=== PATIENT | female | born 1980 | race Caucasian/White ===

== ENCOUNTER 2019-05-19 08:23 | Outpatient (CLI) | payer BC, SELFPAY ==
--- NOTE | ~2019-05-19 | MM_ITS ---
EXAMINATION: MM screening kelsea BI w peter HISTORY: Screening mammogram, family history of breast cancer in her mother. TECHNIQUE: Craniocaudal and mediolateral oblique 3-D tomosynthesis images were obtained and synthetic 2-D images were generated. CAD analysis was submitted and interpreted. COMPARISON: 05/04/2018, 03/16/2017 BREAST PARENCHYMAL COMPOSITION: There are scattered areas of fibroglandular density. FINDINGS: RIGHT BREAST: There is a possible mass in the middle third of the outer breast best appreciated 9 cm from the nipple on craniocaudal tomosynthesis image 30/63. LEFT BREAST: There is no evidence of suspicious mass, calcification, or architectural distortion to s uggest malignancy. There has been no significant interval change. IMPRESSION: 1. Possible right breast mass. 2. Additional mammographic views and possible breast ultrasound are recommended. BI-RADS Category 0: Incomplete: Needs additional imaging evaluation. Reviewed, dictated and finalized at location A. WORK FEEDER IMPRESSION: 1. Possible right breast mass. 2. Additional mammographic views and possible breast ultrasound are recommended . BI-RADS Category 0: Incomplete: Needs additional imaging evaluation.
[2019-05-19 08:40] LABS: Basophils Absolute Auto 0.08 K/mm3 (0.00-0.10); Basophils Percent Auto 0.8 % (0.0-1.0); Eosinophils Absolute Auto 0.23 K/mm3 (0.02-0.50); Eosinophils Percent Auto 2.2 % (1.0-6.0); Hematocrit 39.2 % (35.0-49.0); Hemoglobin 12.7 g/dL (12.0-15.0); Immature Granulocyte Absolute 0.04 K/mm3 (0.00-0.00); Immature Granulocyte Percent A 0.4 % (0.0-0.0); Lymphocytes Absolute Auto 2.61 K/mm3 (1.10-4.50); Lymphocytes Percent Auto 24.9 % (18.0-42.0); Mean Corpuscular HGB Conc 32.4 g/dL (32.0-36.0); Mean Corpuscular Hemoglobin 27.3 pg (27.0-31.0); Mean Corpuscular Volume 84.1 fL (78.0-102.0); Mean Platelet Volume 11.3 fl (9.2-11.8); Monocytes Absolute Auto 0.62 K/mm3 (0.10-0.90); Monocytes Percent Auto 5.9 % (2.0-11.0); Neutrophils Absolute Auto 6.9 K/mm3 (1.7-7.2); Neutrophils Percent Auto 65.8 % (50.0-70.0); Platelet Count Result 280 K/mm3 (150-420); Red Blood Count 4.66 M/mm3 (4.20-5.40); Red Cell Distribution Width 13.2 % (11.6-14.4); White Blood Count 10.5 K/mm3 (4.8-10.8)
[2019-05-19 09:30] LABS: Hemoglobin A1C 5.3 % (<5.7)
[2019-05-19 10:04] LABS: Alanine Aminotransferase 21 U/L (14-59); Albumin Level 3.9 g/dL (3.4-5.0); Alkaline Phosphatase 52 U/L (46-116); Anion Gap 17.2 mmol/L (7-16); Aspartate Amino Transferase 13 U/L (15-37); Bilirubin,Total 0.5 mg/dL (0.00-1.00); Blood Urea Nitrogen 15 mg/dL (7-18); Calcium 8.8 mg/dL (8.5-10.1); Carbon Dioxide 26 mmol/L (21-32); Chloride 104 mmol/L (98-108); Cholesterol 182 mg/dL (0-200); Estimated Glomerular Filt Rate > 60; Glucose 87 mg/dL (70-99); HDL Direct 68 mg/dL (40-60); LDL Cholesterol Calculated 79 mg/dL (<130); Osmolality Calculated 295 mOsm/kg (285-295); Potassium 4.2 mmol/L (3.5-5.1); Sodium 143 mmol/L (136-145); Total Protein 7.5 g/dL (6.4-8.2); Triglycerides 173 mg/dL (0-150); Vitamin B12 318 pg/mL (193-986)
[2019-05-19 10:42] LABS: Folic Acid > 20.0 ng/mL (8.6->20)
[2019-05-19 11:04] LABS: Thyroid Stimulating Hormone Reflex 2.43 u/IU/mL (0.36-3.74)
[2019-05-24 10:31] LABS: Vitamin D 25 Hydroxy 21 ng/mL (30-100)
== END 2019-05-19 08:24 | disposition home or self-care (01) ==
PROVIDERS: PCP Internal Medicine; Visit Provider Obstetrics & Gynecology
DX: Z12.31 Encounter for screening mammogram for malignant neoplasm of breast (principal); Z01.419 Encounter for gynecological examination (general) (routine) without abnormal findings
CPT/HCPCS: 36415; 77063; 77067; 80053; 80061; 82306; 82397; 82607; 82746; 83036; 84443; 85025

== ENCOUNTER 2019-05-24 09:15 | Outpatient (CLI) | payer BC, SELFPAY ==
--- NOTE | ~2019-05-24 | MMUS_ITS ---
EXAMINATION: MM diagnostic kelsea RT w peter, US breast RT limited HISTORY: Follow-up right breast asymmetry TECHNIQUE: Additional 3-D tomosynthesis images of the right breast were performed and synthetic 2-D i mages were generated. CAD analysis was submitted and interpreted. High resolution breast ultrasound w as performed. COMPARISON: Comparison to multiple prior studies sequentially, with oldest reviewed study dated 02/27. FINDINGS: MAMMOGRAPHIC FINDINGS: Breast composed of scattered areas of fibroglandular density. There are persistent asymmetries in the upper outer quadrant of the right breast. No discrete mass identified. ULTRASOUND: Limited right breast ultrasound: At 10:00, 9 cm from the nipple, there is a 6 mm intramammary lymph node which may correspond to the a francisca of mammographic concern. No other discrete solid or cystic masses are identified. IMPRESSION: 1. Benign-appearing 6 mm intramammary lymph node of the right breast at 10:00, 9 cm from the nipple. This may correspond to the area of mammographic concern. 2. Recommend 6 month follow-up diagnostic right mammogram and ultrasound recommended. BI-RADS category 3, probably benign findings. Reviewed, dictated and finalized at location A. . PRICING ANALYST IMPRESSION: 1. Benign-appearing 6 mm intramammary lymph node of the right breast at 10:00, 9 cm from the nipple. This may correspond to the area of mammographic concern. 2. Recommend 6 month follow-up diagnostic right mammogram and ultrasound recomm ended. BI-RADS category 3, probably benign findings.
== END 2019-05-24 09:16 | disposition home or self-care (01) ==
LOC: CHSIMG 09:17
PROVIDERS: PCP Obstetrics & Gynecology; Visit Provider Obstetrics & Gynecology
DX: R92.8 Other abnormal and inconclusive findings on diagnostic imaging of breast (principal)
CPT/HCPCS: 76642; 77061; 77065; G0279

== ENCOUNTER → 2019-11-30 09:10 | Outpatient (CLI) | payer OTHER, SELFPAY ==
--- NOTE | ~2019-11-30 | MM_ITS ---
EXAMINATION: MM diagnostic kelsea RT w peter HISTORY: Follow-up right breast asymmetry TECHNIQUE: Additional 3-D tomosynthesis images of the right breast were performed and synthetic 2-D i mages were generated. CAD analysis was submitted and interpreted. COMPARISON: Comparison to multiple prior studies sequentially, with oldest reviewed study dated 02/27. BREAST PARENCHYMAL COMPOSITION: Breast composed of scattered areas of fibroglandular density. FINDINGS: The right breast is stable without evidence for malignancy. No new masses, calcifications o r architectural distortion. IMPRESSION: 1. No mammographic evidence for malignancy in the right breast. 2. Routine yearly screening mammogram and regular clinical breast examination are recommended. BI-RADS Category 2: Benign finding(s). Reviewed, dictated and finalized at location A. IMPRESSION: 1. No mammographic evidence for malignancy in the right breast. 2. Routine yearly screening mammogram and regular clinical breast examination a re recommended. BI-RADS Category 2: Benign finding(s).
== END ==
PROVIDERS: PCP Internal Medicine; Visit Provider Obstetrics & Gynecology
DX: R59.1 Generalized enlarged lymph nodes (principal)
CPT/HCPCS: 77061; 77065; G0279

== ENCOUNTER 2020-05-23 09:19 | Outpatient (CLI) | payer OTHER, SELFPAY ==
--- NOTE | ~2020-05-23 | MM_ITS ---
EXAMINATION: MM screening kelsea BI w peter HISTORY: Screening mammogram TECHNIQUE: Craniocaudal and mediolateral oblique 3-D tomosynthesis images were obtained and synthetic 2-D images were generated. CAD analysis was submitted and interpreted. COMPARISON: 11/30/2019 diagnostic right digital mammogram 05/24/2019 diagnostic right digital mammogram and limited right breast ultrasound 05/19/2019, , 03/11/2017 bilateral digital screening mammogram examinations BREAST PARENCHYMAL COMPOSITION: There are scattered areas of fibroglandular density. FINDINGS: There is an asymmetric incompletely circumscribed opacity in the posterior aspect of the up per outer quadrant of the left breast. Diagnostic left mammogram is recommended, with ultrasound if r equired. Otherwise there is no evidence of suspicious mass, calcification, or architectural distortion to sugg est malignancy in either breast. Scattered bilateral benign calcifications are again noted. There has been no other suspicious interval change. IMPRESSION: 1. Asymmetric opacity in the posterior upper outer right breast 2. Diagnostic left mammogram is recommended, with ultrasound if required BI-RADS Category 0: Incomplete: Needs additional imaging evaluation. Reviewed, dictated and finalized at location A. PROCESSING SUPERVISOR
== END 2020-05-23 09:20 | disposition home or self-care (01) ==
LOC: CHSIMG 09:21
PROVIDERS: PCP Internal Medicine; Visit Provider Obstetrics & Gynecology
DX: Z12.31 Encounter for screening mammogram for malignant neoplasm of breast (principal)
CPT/HCPCS: 77063; 77067

== ENCOUNTER 2020-06-06 12:28 | Outpatient (CLI) | payer OTHER, SELFPAY ==
--- NOTE | ~2020-06-06 | US_ITS ---
US breast LT complete DATE: 06/06/2020 13:27 INDICATION: Asymmetric incompletely circumscribed opacity in posterior aspect of upper outer quadrant of left breast on May 23, 2020 bilateral digital screening mammogram TECHNIQUE: High-resolution of sound imaging of the upper inner quadrant left breast COMPARISON: May 23, 2020 bilateral digital screening mammogram June 06, 2020 diagnostic left digital mammogram FINDINGS: Benign 4.5 mm lymph node noted at 2:00 4 cm from nipple. No suspicious mass or shadowing is detected elsewhere in the upper outer quadrant left breast. IMPRESSION: BI-RADS Category 2: Benign Recommendation: Routine annual mammographic screening Reviewed, dictated and finalized at Location A. Reviewed, dictated and finalized at location D. STYLIST
--- NOTE | ~2020-06-06 | MM_ITS ---
EXAMINATION: MM diagnostic kelsea LT w peter HISTORY: Asymmetric opacity reported in posterior upper outer left breast on May 23, 2020 screen ing mammogram TECHNIQUE: Additional 3-D tomosynthesis images of the left breast were performed and synthetic 2-D im ages were generated. CAD analysis was submitted and interpreted. High resolution targeted upper outer quadrant left breast ultrasound was performed. COMPARISON: May 23, 2020 bilateral digital screening mammogram FINDINGS: MAMMOGRAPHIC FINDINGS: There is an approximately 5 mm circumscribed opacity in the left axillary tail, likely a benign intra mammary lymph node or benign cyst. No suspicious mass or architectural distortion is evident in the area of concern in the posterior upp er outer quadrant of the left breast. ULTRASOUND: There is a circumscribed parallel benign-appearing lymph node measuring up to 4.5 mm and 2:00 4 cm fr om the nipple. No suspicious mass or shadowing is evident in the upper outer quadrant left breast. IMPRESSION: 1. No mammographic evidence of malignancy 2. Routine mammographic screening is recommended. BI-RADS Category 2: Benign finding(s). Reviewed, dictated and finalized at location D. HOOKER
== END 2020-06-06 12:29 | disposition home or self-care (01) ==
PROVIDERS: PCP Internal Medicine; Visit Provider Obstetrics & Gynecology
DX: R92.8 Other abnormal and inconclusive findings on diagnostic imaging of breast (principal)
CPT/HCPCS: 76641; 77061; 77065; G0279

== ENCOUNTER 2021-07-24 12:57 | Outpatient (CLI) | payer OTHER, SELFPAY ==
--- NOTE | ~2021-07-24 | MM_ITS ---
EXAMINATION: MM screening [facility] BI w peter HISTORY: Screening TECHNIQUE: Craniocaudal and mediolateral oblique 3-D tomosynthesis images were obtained and synthetic 2-D images were generated. CAD analysis was submitted and interpreted. COMPARISON: Comparison to multiple prior studies sequentially, with oldest reviewed study dated 07/2018. BREAST PARENCHYMAL COMPOSITION: There are scattered areas of fibroglandular density. FINDINGS: There is no evidence of suspicious mass, calcification, or architectural distortion to sugg est malignancy in either breast. There has been no suspicious interval change. IMPRESSION: 1. No mammographic evidence of malignancy. 2. Recommend routine screening mammography in one year. BI-RADS Category 1: Negative Reviewed, dictated and finalized at location A.
--- NOTE | ~2021-07-24 | US_ITS ---
EXAMINATION: US pelvic complete w TV DATE: 07/24/2021 13:30 INDICATION: Pelvic pain and tenderness TECHNIQUE: Multiple transabdominal and endovaginal sonographic images of the pelvis were obtained. COMPARISON: None. FINDINGS: The uterus measures 9.1 x 3.6 x 4.7 cm. The endometrial complex measures 6 mm. The right ov bianca measures 2.2 x 1.6 x 1.6 cm. The left ovary measures 2.8 x 1.7 x 1.5 cm. There is normal vascular flow in the ovaries. There is no free fluid in the pelvis. IMPRESSION: 1. No sonographic correlate for the patient's symptoms. Reviewed, dictated and finalized at location F.
[2021-07-24 13:10] LABS: Basophils Absolute Auto 0.06 K/mm3 (0.00-0.10); Basophils Percent Auto 0.6 % (0.0-1.0); Eosinophils Absolute Auto 0.13 K/mm3 (0.02-0.50); Eosinophils Percent Auto 1.2 % (1.0-6.0); Hematocrit 40.1 % (35.0-49.0); Hemoglobin 12.7 g/dL (12.0-15.0); Immature Granulocyte Absolute 0.04 K/mm3 (0.00-0.00); Immature Granulocyte Percent A 0.4 % (0.0-0.0); Lymphocytes Absolute Auto 2.29 K/mm3 (1.10-4.50); Mean Corpuscular HGB Conc 31.7 g/dL (32.0-36.0); Mean Corpuscular Hemoglobin 27.5 pg (27.0-31.0); Mean Platelet Volume 11.3 fl (9.2-11.8); Monocytes Absolute Auto 0.61 K/mm3 (0.10-0.90); Monocytes Percent Auto 5.6 % (2.0-11.0); Neutrophils Absolute Auto 7.8 K/mm3 (1.7-7.2); Neutrophils Percent Auto 71.2 % (50.0-70.0); Platelet Count Result 252 K/mm3 (150-420); Red Blood Count 4.61 M/mm3 (4.20-5.40); Red Cell Distribution Width 12.9 % (11.6-14.4); White Blood Count 10.9 K/mm3 (4.8-10.8)
[2021-07-24 13:33] LABS: Thyroid Stimulating Hormone Reflex 1.25 u/IU/mL (0.36-3.74)
[2021-07-25 08:40] LABS: Beta HCG Quantitative < 2.39 mIU/ML
[2021-07-27 08:07] LABS: FSH 28.3 mIU/mL (***); Progesterone 0.9 ng/mL (***)
[2021-07-30 00:37] LABS: Estradiol, Ultrasensitive 203 pg/mL
== END 2021-07-24 12:58 | disposition home or self-care (01) ==
LOC: CHSIMG 12:58
PROVIDERS: PCP Obstetrics & Gynecology; Visit Provider Obstetrics & Gynecology
DX: Z12.31 Encounter for screening mammogram for malignant neoplasm of breast (principal); N93.9 Abnormal uterine and vaginal bleeding, unspecified
CPT/HCPCS: 36415; 76830; 76856; 77063; 77067; 82670; 83001; 84144; 84443; 84702; 85025

== ENCOUNTER 2021-07-30 12:36 | Outpatient (CLI) | payer OTHER, SELFPAY ==
[2021-07-30 13:34] LABS: Influenza A QL RT-PCR Negative (Negative); Influenza B QL RT-PCR Negative (Negative); SARS-CoV-2 RNA PCR Positive (Negative)
== END 2021-07-30 12:37 | disposition home or self-care (01) ==
PROVIDERS: PCP Internal Medicine; Visit Provider Nurse Practitioner Family
DX: U07.1 COVID-19 (principal); R50.9 Fever, unspecified
CPT/HCPCS: 87502; C9803; U0003; U0005

== ENCOUNTER 2022-10-27 08:46 | Outpatient (CLI) | payer OTHER, SELFPAY ==
--- NOTE | ~2022-10-27 | MM_ITS ---
EXAMINATION: MM diagnostic kelsea BI w peter HISTORY: Left breast lump reportedly felt by referring physician TECHNIQUE: ML, MLO and CC 3-D tomosynthesis images of both breasts were performed and synthetic 2-D i mages were generated. CAD analysis was submitted and interpreted. COMPARISON: 07/24/2021 bilateral screening mammogram BREAST PARENCHYMAL COMPOSITION: There are scattered areas of fibroglandular density. FINDINGS: No suspicious mass or architectural distortion, malignant calcification, skin thickening or retraction or significant new or developing density is detected. Scattered bilateral benign calcifi cations. IMPRESSION: 1. No mammographic evidence of malignancy 2. Routine annual mammographic screening is recommended. BI-RADS Category 2: Benign finding(s). Reviewed, dictated and finalized at location A.
== END 2022-10-27 08:47 | disposition home or self-care (01) ==
LOC: CHSIMG 08:47
PROVIDERS: PCP Internal Medicine; Visit Provider Obstetrics & Gynecology
DX: N63.25 Unspecified lump in the left breast, overlapping quadrants (principal)
CPT/HCPCS: 77062; 77066; G0279

== ENCOUNTER 2023-02-02 11:12 | Outpatient (CLI) | payer OTHER, SELFPAY ==
--- NOTE | ~2023-02-02 | XR_ITS ---
Clinical Indication: Upper respiratory infection PA and lateral views of the chest: Comparison: None Findings: The lungs are clear, without evidence of focal consolidation or pleural effusion. Cardiome diastinal silhouette is within normal limits. Bones and soft tissues are unremarkable. Impression: Normal chest. Reviewed, dictated and finalized at [facility]. LIZER Impression: Normal chest.
[2023-02-02 11:44] LABS: Basophils Absolute Auto 0.04 K/mm3 (0.00-0.10); Basophils Percent Auto 0.3 % (0.0-1.0); Eosinophils Absolute Auto 0.14 K/mm3 (0.02-0.50); Eosinophils Percent Auto 1.2 % (1.0-6.0); Hemoglobin 12.2 g/dL (12.0-15.0); Immature Granulocyte Absolute 0.05 K/mm3 (0.00-0.00); Immature Granulocyte Percent A 0.4 % (0.0-0.0); Lymphocytes Absolute Auto 2.33 K/mm3 (1.10-4.50); Lymphocytes Percent Auto 19.5 % (18.0-42.0); Mean Corpuscular HGB Conc 31.3 g/dL (32.0-36.0); Mean Corpuscular Volume 89.7 fL (78.0-102.0); Mean Platelet Volume 10.5 fl (9.2-11.8); Monocytes Absolute Auto 0.89 K/mm3 (0.10-0.90); Monocytes Percent Auto 7.4 % (2.0-11.0); Neutrophils Absolute Auto 8.5 K/mm3 (1.7-7.2); Neutrophils Percent Auto 71.2 % (50.0-70.0); Platelet Count Result 221 K/mm3 (150-420); Red Blood Count 4.35 M/mm3 (4.20-5.40); Red Cell Distribution Width 13.3 % (11.6-14.4)
[2023-02-02 11:51] LABS: Appearance Urine Clear (Clear); Bilirubin Urine Negative (Negative); Blood Urine Negative (Negative); Color Urine Light Yellow (Yellow); Glucose Urine UA Negative (Negative); Ketones Urine Negative (Negative); Leukocyte Esterase Ur Negative (Negative); Nitrate Urine Negative (Negative); Protein Urine Negative (Negative); pH Urine 7.5 (5.0-8.0)
[2023-02-02 11:52] LABS: Add Urine Microscopic? NO
[2023-02-02 12:19] LABS: Alanine Aminotransferase 28 U/L (14-59); Albumin Level 3.8 g/dL (3.4-5.0); Alkaline Phosphatase 82 U/L (46-116); Anion Gap 10 mmol/L (8-16); Aspartate Amino Transferase < 10 U/L (15-37); Bilirubin,Total 0.6 mg/dL (0.00-1.00); Blood Urea Nitrogen 10 mg/dL (7-18); Calcium 9.2 mg/dL (8.5-10.1); Carbon Dioxide 30 mmol/L (21-32); Chloride 101 mmol/L (98-108); Estimated Glomerular Filt Rate > 60; Glucose 75 mg/dL (70-99); Osmolality Calculated 290 mOsm/kg (285-295); Potassium 3.7 mmol/L (3.5-5.1); Sodium 141 mmol/L (136-145); Total Protein 7.3 g/dL (6.4-8.2)
== END 2023-02-02 11:13 | disposition home or self-care (01) ==
LOC: CHSLAB 11:14
PROVIDERS: PCP Internal Medicine; Visit Provider Nurse Practitioner Family
DX: J06.9 Acute upper respiratory infection, unspecified (principal); N39.0 Urinary tract infection, site not specified
CPT/HCPCS: 36415; 71046; 80053; 81003; 85025; 87086

== ENCOUNTER 2023-12-29 07:37 | Outpatient (CLI) | payer OTHER, SELFPAY ==
--- NOTE | ~2023-12-29 | MM_ITS ---
EXAMINATION: MM screening [facility] BI w peter HISTORY: Screening TECHNIQUE: Craniocaudal and mediolateral oblique 3-D tomosynthesis images were obtained and synthetic 2-D images were generated. CAD analysis was submitted and interpreted. COMPARISON: Comparison to multiple prior studies sequentially, with oldest reviewed study dated 04/2019. BREAST PARENCHYMAL COMPOSITION: There are scattered areas of fibroglandular density. FINDINGS: There is no evidence of suspicious mass, calcification, or architectural distortion to sugg est malignancy in either breast. There has been no suspicious interval change. IMPRESSION: 1. No mammographic evidence of malignancy. 2. Recommend routine screening mammography in one year. BI-RADS Category 1: Negative Reviewed, dictated and finalized at location B.
== END 2023-12-29 07:38 | disposition home or self-care (01) ==
PROVIDERS: PCP Internal Medicine; Visit Provider Obstetrics & Gynecology
DX: Z12.31 Encounter for screening mammogram for malignant neoplasm of breast (principal)
CPT/HCPCS: 77063; 77067

== ENCOUNTER 2025-01-26 07:28 | Outpatient (CLI) | payer OTHER, SELFPAY ==
--- NOTE | ~2025-01-26 | MM_ITS ---
EXAMINATION: MM screening [facility] BI w peter HISTORY: Screening TECHNIQUE: Craniocaudal and mediolateral oblique 3-D tomosynthesis images were obtained and synthetic 2-D images were generated. CAD analysis was submitted and interpreted. COMPARISON: Comparison to multiple prior studies sequentially, with oldest reviewed study dated 11/30/2019. BREAST PARENCHYMAL COMPOSITION: Not dense: There are scattered areas of fibroglandular density. FINDINGS: There is no evidence of suspicious mass, calcification, or architectural distortion to suggest malignancy in either breast. There has been no suspicious interval change. IMPRESSION: 1. No mammographic evidence of malignancy. 2. Recommend routine screening mammography in one year. BI-RADS Category 1: Negative Reviewed, dictated and finalized at location C.
--- OUTSIDE RECORDS SUMMARY | 2025-01-26 07:31 | XMS_ITS | Clinical Summary ---
Author Organization [facility] Address [address] [place] [address] KALEY PURVIS [id number] Phone Care Team Providers Care Fire Warden Name Role Phone Unavailable Primary Care Provider Unavailabl e Allergies No known active allergies Medications PAROXETINE HCL (PAXIL ORAL) Take by mouth. Ac tive LORATADINE/PSEU DOEPHEDRINE (CLARITIN-D 24 HOUR ORAL) Take by mouth. Acti ve metFORMIN (GLUCOPHAGE) 1,000 mg Oral tablet Take 1,000 mg by mouth 2 times daily with meals. Active OTHER Provider please include Medication name, dose, route and frequency Active PHENAZOPYRIDINE HCL (URISTAT ORAL) Take by mouth. Activ e ciprofloxacin (CIPRO) 500 mg Oral tabletIndicatio ns:UTI (lower urinary tract infection) Take 1 Tab by mouth 2 times daily. 10 Tab 0 3 Active naproxen (NAPROSYN) 500 mg Oral tabletIndicatio ns:Urinary pain Take 1 Tab by mouth 2 times daily with meals. 20 Tab 0 3 Active Active Problems No known active problems Family History Medical History Relation Name Comments Healthy Father Healthy Mother Relation Name Status Comments Father Alive Mother Alive Social History Tobacco Use Types Packs/Day Years Used Date Smoking Tobacco: Never Alcohol Use Standard Drinks/Week Comments No 0 (1 standard drink = 0.6 oz pur e alcohol) Comments No Sex and Gender Information Value Date Recorded Sex Assigned at Not on file Legal Sex Female 8:32 AM CDT Gender Identity Not on file Sexual Orientation Not on file Last Filed Vital Signs Vital Sign Reading Time Taken Comments Blood Pressure 119/78 09/25/2012 8:36 AM CDT Pulse 82 09/25/2012 8:36 AM CDT Temperature 36.4 C (97.5 F) 09/25/2012 8:36 AM CDT Respiratory Rate 20 09/25/2012 8:36 AM CDT Oxygen Saturation 99% 09/25/2012 8:36 AM CDT Inhaled Oxygen Concentration - - Weight 79.4 kg (175 lb) 09/25/2012 8:36 AM CDT Height 167.6 cm (5' 6) 09/25/2012 8:36 AM CDT Body Mass Index 28.25 09/25/2012 8:36 AM CDT Plan of Treatment Health Maintenance Due Date Last Done Comments DTAP/TDAP/TD VACCINES (1 - Tdap) 1997 HEPATITIS B VACCINES (1 of 3 - 19+ 3-dose series) 1997 HPV/Cotest (21-29) 10/10/1999 CERVICAL CANCER SCREENING 2008 HPV/Cotest (30-65) 2008 PAP SMEAR 2008 BREAST CANCER SCREENING 2018 COLORECTAL SCREENING 10/10/2023 Colorectal Cancer Screening 10/10/2023 FIT-DNA Q 3 years 10/10/2023 FIT/FOBT Q 1 year 10/10/2023 Flex Sig/CT Colonography Q 5 years 10/10/2023 INFLUENZA VACCINE (#1) 2024 HPV VACCINES Aged Out No longer eligi ble based on patient's age to complete this topic Insurance [employer] [facility] OPEN ACCESS
--- OUTSIDE RECORDS SUMMARY | 2025-01-26 07:31 | XMS_ITS | Clinical Summary ---
Author Organization [facility] [employer] Address [address] [place] [address] Care Team Providers Care Logistics Supply Officer Name Role Phone Jesus Israel MD, Kareem Unger Primary Care Provider [phone] Source Comments [facility] [employer],non-owned Affiliates and Associated Physician Practices is amultiple site organization consisting of ambulatory clinics and hospital sitesin [place], [place], [place] and [place]. This disclosure is being madepursuant to the Care Everywhere program and may not contain all information available regarding this patient. Last updated 17.[facility] [employer] Allergies No known active allergies Medications * Be aware that medications may not be up to date on this document. Alwaysverify current medications with the patient. SPIRONOLACTONE PO Take by mouth. Active ORTHO-CYCLEN (28) 0.25-35 MG-MCG TABS Take 1 Tab by mouth daily. Active CALCIUM 500 +D PO Take by mouth. Active multivitamin daily (THERAGRAN) tablet qd Active vitamin D, ergocalciferol, (DRISDOL) 62258 UNIT capsule TAKE ONE CAPSULE BY MOUTH EVERY 30 DAYS 6 Cap 0 2 Active loratadine-pseudo ephedrine 24hr (CLARITIN-D) 10-240 MG tablet Take 1 Tab by mouth once daily. Active fluticasone propionate (FLONASE) 50 MCG/ACT nasal spray [place] 1 [place] into each nostril 2 times daily. Active hydrocodone-aceta minophen (NORCO) 5-325 MG tablet Take 1-2 Tabs by mouth every 4 hours as needed for Pain. 10 Tab 0 2 Active ibuprofen (MOTRIN) 800 MG tablet Take 1 Tab by mouth 3 times daily as needed for Pain. 20 Tab 0 2 Active guaifenesin-codei ne (ROBITUSSIN AC) 100-10 MG/5ML syrup Take 5 mL by mouth every 4 hours as needed for Cough. 240 mL 0 2 Active loratadine-pseudo ephedrine 24hr (CLARITIN-D 24 HOUR) 10-240 MG tablet Take 1 Tab by mouth once daily. 90 Tab 1 2 Active nitrofurantoin macrocrystal (MACRODANTIN) 100 MG capsule Take 1 Cap by mouth 2 times daily. 10 Cap 0 2 Active PARoxetine (PAXIL) 30 MG tablet Take 1 Tab by mouth once daily. 30 Tab 3 3 Active WAL-ITIN D 24 HOUR 10-240 MG tablet TAKE 1 TABLET BY MOUTH DAILY 90 Tab 0 3 Active PARoxetine (PAXIL) 30 MG tablet TAKE ONE TABLET BY MOUTH DAILY 30 Tab 8 3 Active metFORMIN (GLUCOPHAGE) 850 MG tablet 1 Tab 2 times daily with morning and evening meal. 180 Tab 3 3 Active metFORMIN (GLUCOPHAGE) 850 MG tablet TAKE ONE TABLET BY MOUTH TWICE A DAY 60 Tab 0 4 Active Active Problems Problem Noted Date Diagnosed Date Elderly primigravida, antepartum 03/17/2014 maternal age 33 03/14/2014 Allergic rhinitis 06/18/2011 PCO (polycystic ovaries) 08/29/2010 Vitamin D deficiency 02/27/2009 Family History Medical History Relation Name Comments Diabetes Father Cancer Mother Diabetes Paternal Grandmother Relation Name Status Comments Father Mother Paternal Grandmother Social History Tobacco Use Types Packs/Day Years Used Date Smoking Tobacco: Former Cigarettes Q uit: 11/28/2006 Comments:quit smoking in Alcohol Use Standard Drinks/Week Comments No 0 (1 standard drink = 0.6 oz pur e alcohol) Comments No Sex and Gender Information Value Date Recorded Sex Assigned at Not on file Legal Sex Female 4:53 AM 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 Gender Identity Not on file Sexual Orientation Not on file 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 Not on file Not on file Last Filed Vital Signs Vital Sign Reading Time Taken Comments Blood Pressure 116/74 06/18/2011 3:21 PM CDT Pulse 88 06/18/2011 3:21 PM CDT Temperature 37 C (98.6 F) 06/15/2011 11:13 PM CDT Respiratory Rate 18 06/15/2011 11:13 PM CDT Oxygen Saturation 100% 06/15/2011 11:13 PM CDT Inhaled Oxygen Concentration - - Weight 74.4 kg (164 lb) 06/18/2011 3:21 PM CDT Height 167.6 cm (5' 6) 06/18/2011 3:21 PM CDT Body Mass Index 26.47 06/18/2011 3:21 PM CDT Plan of Treatment Health Maintenance Due Date Last Done Comments COLOGUARD (AGES 45-75) - COL ON CA SCREENING 1978 COLON MONITORING 1978 COLONOSCOPY - COLON CA SCREENING 1978 CT COLONOGRAPHY - COLON CA SCREENING 1978 Colorectal Cancer Screening 1978 FIT - COLON CA SCREENING 1978 FLEX SIG - COLON CA SCREENING 1978 MAMMOGRAM 1978 HIV SCREENING 1993 HEPATITIS C SCREENING 10/04/1996 DTAP/TDAP/TD VACCINES (1 - Tdap) 1997 HEPATITIS B VACCINE (1 of 3 - 19+ 3-dose series) 1997 LIPID TESTING 11/21/2014 11/21/2009 DEPRESSION SCREENING 03/30/2024 COVID-19 VACCINE (1 - 2023-2 5 season) 2024 INFLUENZA VACCINE (#1) 2024 ZOSTER VACCINE (1 of 2) 2028 HIB VACCINE Aged Out No longer eligi ble based on patient's age to complete this topic HPV VACCINE Aged Out No longer eligi ble based on patient's age to complete this topic MENINGOCOCCAL (Group B) VACC INE SHARED DECISION-MAKING Aged Out No longer eligibl e based on patient's age to complete this topic MENINGOCOCCAL GROUPS A/C/Y/W VACCINE Aged Out No longer eligible b ased on patient's age to complete this topic PNEUMOCOCCAL VACCINE Aged Out No long er eligible based on patient's age to complete this topic Procedures Procedure Name Priority Date/Time Associated Diagnosis Comments LDL CHOLESTEROL DIRECT Routine 11/21/2009 3:42 PM CDT Annual Physical Exam from Last 3 Months or Most Recently Relevant to Health Maintenance Results * LDL CHOLESTEROL (11/21/2009 3:42 PM CDT) LDL Direct 83 0 - 99 mg/dL [facility] ACCOUNT BILL BLOOD SPECIMEN / Unknown 11/21/2009 3:42 PM CDT 11/21/2009 9:14 PM CDT Narrative Resulting Agency Comment [facility] [address] [facility] [id number] [place] HEALTH RECORD TECHNICIAN-[facility] - CHEMISTRY ORDERABL ES Final Result [facility] ACCOUNT BILL [address] [place] [address] from Last 3 Months or Most Recently Relevant to Health Maintenance Insurance [employer] Care Teams Logistics Supply Officer Relationship Specialty Start Date End Date Kareem eLe Jr., MD [address] [place] [address] PCP - General 10/18/08
--- OUTSIDE RECORDS SUMMARY | 2025-01-26 07:31 | XMS_ITS | Patient Health Record ---
Author Organization [facility] Address [address] [place], [place] [address] Care Team Providers Care Bowl Turner Name Role Phone RICA ORTIZ Unavailable [phone] Audrey Cordero Unavailable Unavailable Reason For Referral No Information Medications Medication SIG (Take, Route, Frequency, Duration) Notes Start Date End Date Status terbinafine 250 MG Oral Tablet ORAL terbinafine 250 MG Oral TabletOriginal Medicationterbinafine 250 MG Oral Tablet *Reorder from [employer] for eRx and Interaction Alerts* 10/13/2014 Active ciclopirox 80 MG/ML Topical Solution [[place] Nail Lacquer] ciclopirox 80 MG/ML Topical Solution [[place] Nail Lacquer]Original Medicationciclopirox 80 MG/ML Topical Solution [[place] Nail Lacquer] *Reorder from [employer] for eRx and Interaction Alerts* 01/12/2015 Active Social History Social History Additional Details Category Social Info Options Details Migrated Social History Migrated Social History Smoking Status : Never smoked , History of tobacco use : Plan Of Treatment No Information Insurance Providers Payer Name Payer Address Payer Phone Subscriber Number Group Number Insured Name Patient Relationship to Insured Coverage Start Date Coverage End Date R [place] / IS [address] [id number] ANTHONY GREENE Spouse - patient is the spouse of the insured
== END 2025-01-26 07:29 | disposition home or self-care (01) ==
LOC: CHSIMG 07:29
PROVIDERS: PCP Internal Medicine; Visit Provider Obstetrics & Gynecology
DX: Z12.31 Encounter for screening mammogram for malignant neoplasm of breast (principal)
CPT/HCPCS: 77063; 77067